=== PATIENT | female | born 2000 | race Caucasian/White ===

== ENCOUNTER 2023-01-28 06:47 | Emergency (ER) | payer BC ==
[~2023-01-28] VITALS: Ht 170.2 cm; Wt 104.3 kg
--- NOTE | 2023-01-28 06:50 | NUR ---
DR. ELKINS WITH PATIENT AT BEDSIDE FOR MSE.
[2023-01-28 07:00] VITALS: BP_SYST 131
--- NOTE | 2023-01-28 07:00 | NUR ---
PPatient to ER bed 08 to gown for evaluation. Side rails up. Report given to LOLLY DANIEL.
[2023-01-28 07:50] VITALS: BP_SYST 128
--- NOTE | 2023-01-28 07:51 | NUR ---
Patient given written and verbal discharge instructions and verbalizes understanding. ER MD discussed with patient the results and treatment provided. Patient in stable condition. ID arm band removed. IV catheter removed intact and dressing applied, no active bleeding. Rx of given. Patient educated on pain management and to follow up with PMD. Pain Scale . Opportunity for questions provided and answered. Medication side effect fact sheet provided.
== END 2023-01-28 07:51 | disposition home or self-care (01) ==
LOC: SED 06:47
DX: R07.89 Other chest pain (principal); R20.2 Paresthesia of skin; F41.9 Anxiety disorder, unspecified; F32.A Depression, unspecified; Z79.899 Other long term (current) drug therapy
CPT/HCPCS: 81025; 93005; 99283

== ENCOUNTER 2023-02-08 03:31 | Emergency (ER) | payer BC ==
[~2023-02-08] VITALS: Ht 170.2 cm; Wt 81.6 kg
[2023-02-08 03:45] VITALS: BP_SYST 137
[2023-02-08] MEDS ORDERED: KETOROLAC TROMETHAMINE 60 MG/2 ML VIAL IM ONE (04:15)
[2023-02-08] MEDS ORDERED: IBUP-1971 PO (04:17)
== END 2023-02-08 04:25 | disposition home or self-care (01) ==
LOC: SED 03:31
DX: R07.89 Other chest pain (principal); Z79.899 Other long term (current) drug therapy
CPT/HCPCS: 99283; 93005; 96372; J1885

== ENCOUNTER 2023-02-28 07:09 | Emergency (ER) | payer BC ==
[~2023-02-28] VITALS: Ht 170.2 cm; Wt 83.9 kg
[~2023-02-28 07:09] MED LIST: IBUP-1971 PO
[2023-02-28 07:23] VITALS: BP_SYST 144
--- NOTE | 2023-02-28 07:25 | NUR ---
Patient to ER bed 6 to gown for evaluation. Side rails up. Report given to Cb AMBROCIO.
--- NOTE | 2023-02-28 07:34 | NUR ---
PT BIB BY SELF AWAKE AND ALERT AOX4, NO SOB OR DISTRESS. PT C/O MIGRAIN HEAD ACHES X2 DAYS. PT STATES PAIN 5/10. PT DENIES HX AND SX. PT STATES THIS HAS NEVER HAPPENED TO HER BEFORE. PT DENIES V/D.
--- NOTE | 2023-02-28 07:36 | NUR ---
MD DR LI AT BEDSIDE
[2023-02-28] MEDS ORDERED: SUMAtriptan SUCCINATE 6 MG/0.5 ML VIAL SUBCUT ONE (07:45)
[2023-02-28] MEDS ORDERED: HYDROcodone/ACETAMIN 10-325 MG TAB PO ONE (08:30)
[2023-02-28] MEDS ORDERED: KETOROLAC TROMETHAMINE 60 MG/2 ML VIAL IM ONE (08:30)
[2023-02-28 09:08] LABS: BASOPHILS % (AUTO) 0.4 % (0.0-2.0); EOSINOPHILS # (AUTO) 0.2 K/uL (0.0-0.4); EOSINOPHILS % (AUTO) 1.8 % (0.0-4.0); HEMATOCRIT 37.4 % (36-48); HEMOGLOBIN 12.5 g/dL (12.0-16.0); LYMPHOCYTES # (AUTO) 2.2 K/uL (1.0-5.5); MEAN CORPUSCULAR HEMOGLOBIN 31 pg (27-31); MEAN CORPUSCULAR HGB CONC 34 % (32-36); MEAN CORPUSCULAR VOLUME 92 fL (79.0-98.0); MONOCYTES # (AUTO) 0.9 K/uL (0.0-1.0); MONOCYTES % (AUTO) 9.1 % (1.7-9.3); NEUTROPHILS # (AUTO) 6.2 K/uL (1.8-7.7); NEUTROPHILS % (AUTO) 65.7 % (40.0-70.0); PLATELET COUNT (AUTO) 284 K/uL (130-430); RED BLOOD CELL COUNT(AUTO) 4.06 MIL/uL (4.2-6.2); RED CELL DISTRIBUTION WIDTH 13.2 % (9.0-15.0); WHITE BLOOD COUNT (AUTO) 9.5 K/uL (4.8-10.8)
[2023-02-28 09:24] LABS: ANION GAP 10 (5-15); CALCIUM 8.4 mg/dL (8.4-11.0); CHLORIDE 101 mmol/L (98-107); CREATININE 0.59 mg/dL (0.55-1.30); GFR AFRICAN AMERICAN 164 mL/min (>90); GLUCOSE 114 mg/dL (70-99); UREA NITROGEN, BLOOD 5 mg/dL (8-21)
[2023-02-28 09:29] LABS: ALANINE AMINOTRANSFERASE 21 U/L (12-78); ALBUMIN 3.4 g/dL (3.4-4.8); ASPARTATE AMINOTRANSFERASE 14 U/L (10-37); TOTAL BILIRUBIN 0.5 mg/dL (0.0-1.0)
[2023-02-28 09:30] LABS: ERYTHROCYTE SEDIMENTATION RATE 14 MM/HR (0-20)
[2023-02-28 09:31] LABS: C-REACTIVE PROTEIN QUANT < 0.2 mg/dL (0-0.5)
[2023-02-28] MEDS ORDERED: TRAM50TA2 PO (09:58)
[2023-02-28] MEDS ORDERED: IBUP-1969 PO (09:58)
[2023-02-28 10:06] VITALS: BP_SYST 97
--- NOTE | 2023-02-28 10:12 | NUR ---
Patient given written and verbal discharge instructions and verbalizes understanding. ER MD DR LI discussed with patient the results and treatment provided. Patient in stable condition. ID arm band removed. Rx of XANAX given. Patient educated on pain management and to follow up with PMD. Pain Scale 03/29. Opportunity for questions provided and answered. Medication side effect fact sheet provided. Addendum: 02/28/23 at 1013 by JONE NO XANAX, MOTRIN ANF TRAMADOL
== END 2023-02-28 10:12 | disposition home or self-care (01) ==
LOC: SED 07:09
DX: R51.9 Headache, unspecified (principal); Z79.899 Other long term (current) drug therapy
CPT/HCPCS: 99285; 70450; 80053; 85025; 85651; 86140; 36415; 76376; 96372; J1885; J3030

== ENCOUNTER 2023-03-14 03:58 | Emergency (ER) | payer BC ==
[~2023-03-14] VITALS: Ht 170.2 cm; Wt 83.9 kg
[~2023-03-14 03:58] MED LIST changes: +IBUP-1969 PO; +TRAM50TA2 PO
--- NOTE | 2023-03-14 04:05 | NUR ---
Patient to ER bed 04 to gown for evaluation. Side rails up. Report given to LOLLY GAY.
[2023-03-14 04:11] VITALS: BP_SYST 150
--- NOTE | 2023-03-14 04:12 | NUR ---
PATIENT COMPLAINTS OF 5/10 LEFT ARM PAIN, DESCRIBES PAIN A SQUEEZING FEELING X 1 DAY, PAIN WAS UNPROVOKED
[2023-03-14] MEDS ORDERED: IBUP-1971 PO (04:39)
[2023-03-14] MEDS ORDERED: VIS25 PO (04:39)
--- NOTE | 2023-03-14 04:50 | NUR ---
Patient given written and verbal discharge instructions and verbalizes understanding. ER MD discussed with patient the results and treatment provided. Patient in stable condition. ID arm band removed. Rx given. Patient educated on pain management and to follow up with PMD. Pain Scale 4/10. Opportunity for questions provided and answered. Medication side effect fact sheet provided.
[2023-03-14 04:55] VITALS: BP_SYST 116
== END 2023-03-14 04:55 | disposition home or self-care (01) ==
LOC: SED 03:58
DX: R07.89 Other chest pain (principal); M79.10 Myalgia, unspecified site; M79.602 Pain in left arm; M25.512 Pain in left shoulder; Z79.899 Other long term (current) drug therapy
CPT/HCPCS: 93005; 99283

== ENCOUNTER 2023-03-29 04:35 | Emergency (ER) | payer BC ==
[~2023-03-29] VITALS: Ht 170.2 cm; Wt 83.9 kg
[~2023-03-29 04:35] MED LIST changes: +VIS25 PO
[2023-03-29 04:46] VITALS: BP_SYST 141; PULSE 101; RESP 20; TEMP 98; O2SAT 97
[2023-03-29] MEDS ORDERED: KETOROLAC TROMETHAMINE 30 MG VIAL IM ONE (05:00)
[2023-03-29 05:12] LABS: BASOPHILS # (AUTO) 0.1 K/uL (0.0-0.2); BASOPHILS % (AUTO) 0.8 % (0.0-2.0); EOSINOPHILS # (AUTO) 0.3 K/uL (0.0-0.4); HEMATOCRIT 38.7 % (36-48); HEMOGLOBIN 12.8 g/dL (12.0-16.0); LYMPHOCYTES # (AUTO) 2.5 K/uL (1.0-5.5); LYMPHOCYTES % (AUTO) 27.7 % (20.5-51.5); MEAN CORPUSCULAR HEMOGLOBIN 30 pg (27-31); MEAN CORPUSCULAR HGB CONC 33 % (32-36); MEAN CORPUSCULAR VOLUME 92 fL (79.0-98.0); MONOCYTES # (AUTO) 0.8 K/uL (0.0-1.0); MONOCYTES % (AUTO) 8.4 % (1.7-9.3); NEUTROPHILS # (AUTO) 5.4 K/uL (1.8-7.7); NEUTROPHILS % (AUTO) 60.1 % (40.0-70.0); PLATELET COUNT (AUTO) 353 K/uL (130-430); RED BLOOD CELL COUNT(AUTO) 4.22 MIL/uL (4.2-6.2); RED CELL DISTRIBUTION WIDTH 13.2 % (9.0-15.0); WHITE BLOOD COUNT (AUTO) 8.9 K/uL (4.8-10.8)
[2023-03-29 05:31] LABS: ANION GAP 11 (5-15); CALCIUM 8.1 mg/dL (8.4-11.0); CHLORIDE 104 mmol/L (98-107); CREATININE 0.66 mg/dL (0.55-1.30); GFR AFRICAN AMERICAN 144 mL/min (>90); GLUCOSE 100 mg/dL (74-106); UREA NITROGEN, BLOOD 8 mg/dL (8-21)
[2023-03-29 05:38] LABS: ALANINE AMINOTRANSFERASE 25 U/L (12-78); ALBUMIN 3.6 g/dL (3.4-4.8); ASPARTATE AMINOTRANSFERASE 15 U/L (10-37); TOTAL BILIRUBIN 0.4 mg/dL (0.0-1.0)
[2023-03-29 05:49] VITALS: BP_SYST 134; PULSE 84; RESP 18; TEMP 98.4; O2SAT 98
== END 2023-03-29 06:13 | disposition home or self-care (01) ==
LOC: SED 04:35
DX: R07.89 Other chest pain (principal); M79.602 Pain in left arm; F41.9 Anxiety disorder, unspecified; Z79.899 Other long term (current) drug therapy
CPT/HCPCS: 99285; 71045; 80053; 85025; 85379; 84484; 36415; 93005; 81025; J1885

== ENCOUNTER 2023-04-28 22:39 | Emergency (ER) | payer BC ==
[~2023-04-28] VITALS: Ht 170.2 cm; Wt 85.7 kg
[2023-04-28 23:03] VITALS: BP_SYST 118; PULSE 89; RESP 20; TEMP 98.7; O2SAT 97
[2023-04-28] MEDS ORDERED: PANTOPRAZOLE SODIUM 40 MG/VIAL (PROTONIX) IVP ONE (23:30)
[2023-04-28 23:58] LABS: BILIRUBIN,URINE NEGATIVE (NEGATIVE); BLOOD, URINE 1+ (NEGATIVE); COLOR,URINE YELLOW (YELLOW); GLUCOSE,URINE NEGATIVE (NEGATIVE); KETONES,URINE NEGATIVE (NEGATIVE); LEUKOCYTE ESTERASE ,URINE NEGATIVE (NEGATIVE); NITRITE, URINE NEGATIVE (NEGATIVE); PROTEIN URINE NEGATIVE (NEGATIVE); UROBILINOGEN,URINE 0.2 (0.2-1.0)
[2023-04-29 00:19] LABS: BASOPHILS % (AUTO) 0.2 % (0.0-2.0); EOSINOPHILS # (AUTO) 0.3 K/uL (0.0-0.4); EOSINOPHILS % (AUTO) 1.6 % (0.0-4.0); HEMATOCRIT 40.3 % (36-48); HEMOGLOBIN 13.3 g/dL (12.0-16.0); LYMPHOCYTES # (AUTO) 1.3 K/uL (1.0-5.5); LYMPHOCYTES % (AUTO) 7.4 % (20.5-51.5); MEAN CORPUSCULAR HEMOGLOBIN 30 pg (27-31); MEAN CORPUSCULAR HGB CONC 33 % (32-36); MEAN CORPUSCULAR VOLUME 92 fL (79.0-98.0); MONOCYTES # (AUTO) 1.5 K/uL (0.0-1.0); MONOCYTES % (AUTO) 8.6 % (1.7-9.3); NEUTROPHILS % (AUTO) 82.2 % (40.0-70.0); PLATELET COUNT (AUTO) 356 K/uL (130-430); RED CELL DISTRIBUTION WIDTH 12.8 % (9.0-15.0)
[2023-04-29 00:21] LABS: CLARITY/URINE HAZY (CLEAR)
[2023-04-29 00:23] LABS: BACTERIA,URINE None Seen /HPF (None Seen); WBC,URINE 0-3 /HPF (0-3)
[2023-04-29 00:27] LABS: CALCIUM 9.2 mg/dL (8.4-11.0); CREATININE 0.7 mg/dL (0.55-1.30); POTASSIUM 3.9 mmol/L (3.5-5.1)
[2023-04-29 00:31] LABS: PROTHROMBIN TIME 9.9 SECS (9.5-12.5)
[2023-04-29 00:32] LABS: ALBUMIN 3.8 g/dL (3.4-4.8); TOTAL BILIRUBIN 0.3 mg/dL (0.0-1.0); TOTAL PROTEIN, SERUM 7.8 g/dL (6.4-8.3)
[2023-04-29] MEDS ORDERED: MORPHINE 4 MG INJ. 4 MG/ML VIAL IVP ONE (04:00)
[2023-04-29] MEDS ORDERED: MORPHINE 4 MG INJ. 4 MG/ML VIAL ONE (04:23)
[2023-04-29] MEDS ORDERED: OMEP20CA15 PO (11:44)
[2023-04-29 11:54] VITALS: BP_SYST 118; PULSE 71; RESP 18; TEMP 98.5; O2SAT 98
== END 2023-04-29 11:54 | disposition home or self-care (01) ==
LOC: SED 22:39
DX: R10.13 Epigastric pain (principal); K92.1 Melena; R11.2 Nausea with vomiting, unspecified; Z79.899 Other long term (current) drug therapy
CPT/HCPCS: 99285; 80053; 81000; 85025; 85610; 85730; 36415; 74176; 96374; 96375; 76376; C9113; J2270

== ENCOUNTER 2024-06-05 23:48 | Emergency (ER) | payer SELFPAY ==
[~2024-06-05] VITALS: Ht 167.6 cm; Wt 94.3 kg
[~2024-06-05 23:48] MED LIST changes: +OMEP20CA15 PO
[2024-06-06 00:20] VITALS: BP_SYST 136; PULSE 90; RESP 18; TEMP 97.9; O2SAT 100
[2024-06-06] MEDS ORDERED: METH-776 PO (00:30)
[2024-06-06] MEDS ORDERED: NABU-140 PO (00:30)
[2024-06-06 00:53] VITALS: BP_SYST 136; PULSE 90; RESP 18; TEMP 97.9; O2SAT 100
== END 2024-06-06 00:50 | disposition home or self-care (01) ==
LOC: SED 23:48
DX: M54.12 Radiculopathy, cervical region (principal); R20.2 Paresthesia of skin; F41.9 Anxiety disorder, unspecified; Z79.899 Other long term (current) drug therapy; Z79.2 Long term (current) use of antibiotics
CPT/HCPCS: 99283